=== PATIENT | male | born 1975 | race Caucasian/White ===

== ENCOUNTER 2017-01-31 17:50 | Emergency (ER) | payer SELFPAY ==
--- NOTE | 2017-01-31 19:49 | UC ---
Throat Pain/Nasal [place] HPI - HPI Summary HPI Summary: complaint of sore throat that started approx 3 hours ago sides of his tongue are sore feels fatigued denies fever and cough daughter dx with strep pharyngitis not taking any medication for symptoms - History of Current Complaint Chief Complaint: UCRespiratory Stated Complaint: POSSIBLE STREP COMPLAINT Time Seen by Provider: 01/31/17 19:42 Hx Obtained From: Patient - Allergies/Home Medications Allergies/Adverse Reactions: Allergies Allergy/AdvReac Type Severity Reaction Status Date / Time No Known Allergies Allergy Verified 01/31/17 19:31 Home Medications: Home Medications NK [No Home Medications Reported] 01/31/17 [History Confirmed 01/31/17] PMH/Surg Hx/FS Hx/Imm Hx Previously Healthy: Yes - Surgical History Surgical History: None - Family History Known Family History: Negative: Cardiac Disease, Hypertension, Diabetes - Social History Occupation: Employed Full-time Lives: With Family Alcohol Use: None Substance Use Type: None Smoking Status (MU): Never Smoked Tobacco Review of Systems Constitutional: Negative Skin: Negative Eyes: Negative ENT: Sore Throat Respiratory: Negative Cardiovascular: Negative Gastrointestinal: Negative Genitourinary: Negative Motor: Negative Neurovascular: Negative Musculoskeletal: Negative Neurological: Negative Psychological: Negative All Other Systems Reviewed And Are Negative: Yes Physical Exam Triage Information Reviewed: Yes Appearance: No Pain Distress, Well-Nourished Vital Signs: Initial Vital Signs Temp 98.5 F 01/31/17 19:28 Pulse 78 01/31/17 19:28 Resp 12 01/31/17 19:28 BP 121/80 01/31/17 19:28 Pulse Ox 100 01/31/17 19:28 Vital Signs Reviewed: Yes Eyes: Positive: Conjunctiva Clear ENT: Positive: Pharyngeal erythema, Nasal congestion, Nasal drainage, TMs normal , Tonsillar swelling. Negative: Tonsillar exudate Neck: Positive: No Lymphadenopathy Respiratory: Positive: Lungs clear, Normal breath sounds, No respiratory distress, No accessory muscle use Cardiovascular: Positive: RRR, No Murmur, Pulses Normal Abdomen Description: Positive: Nontender, Soft Bowel Sounds: Positive: Present Musculoskeletal: Positive: No Edema Neurological: Positive: Alert Psychological: Positive: Normal Response To Family, Age Appropriate Behavior Skin Exam: Normal Throat Pain/Nasal Course/Dx - Differential Dx/Diagnosis Differential Diagnosis/HQI/PQRI: Pharyngitis, Tonsillitis Provider Diagnoses: pharyngitis Discharge - Discharge Plan Condition: Stable Disposition: HOME Patient Education Materials: Pharyngitis (ED) Referrals: [facility] [place] [facility] [Outside] Additional Instructions: Increase fluids and rest Take acetaminophen or ibuprofen for fever or pain Please review your discharge instructions. If your symptoms do not improve please call your primary care provider or return to urgent care
== END 2017-01-31 20:15 | disposition home or self-care (01) ==
LOC: UCEAST 17:50
DX: J02.9 Acute pharyngitis, unspecified (principal)
CPT/HCPCS: 87651; 99201; G0463

== ENCOUNTER 2019-04-07 09:42 | Emergency (ER) | payer BC ==
[2019-04-07 10:13] VITALS: BP 111/71
--- NOTE | 2019-04-07 11:14 | UC ---
Skin Complaint HPI - HPI Summary HPI Summary: pt removed tick form inner L thigh yesterday. feels it was not there for >24h but concerned as he gets "a lot of tick bites" and in fact was treated 10 y ago for bulls eye rash. states this tick bite hurts and looks more red than others he removes - History of Current Complaint Chief Complaint: UCSkin Time Seen by Provider: 04/07/19 11:07 Stated Complaint: TICK BITE Hx Obtained From: Patient Onset/Duration: Sudden Onset Current Severity: None Pain Intensity: 0 Location: Other - L thigh Character: Pain, Redness Aggravating Factor(s): Touch Alleviating Factor(s): Nothing Associated Signs & Symptoms: Positive: Negative Related History: Insect Bite/Sting - Allergy/Home Medications Allergies/Adverse Reactions: Allergies Allergy/AdvReac Type Severity Reaction Status Date / Time No Known Allergies Allergy Verified 04/07/19 10:13 PMH/Surg Hx/FS Hx/Imm Hx Previously Healthy: Yes - Surgical History Surgical History: None - Family History Known Family History: Negative: Cardiac Disease, Hypertension, Diabetes - Social History Occupation: Employed Full-time Lives: With Family Alcohol Use: None Substance Use Type: Marijuana Substance Use Comment - Amount & Last Used: daily Smoking Status (MU): Never Smoked Tobacco Review of Systems All Other Systems Reviewed And Are Negative: Yes Constitutional: Positive: Negative. Negative: Fever Respiratory: Positive: Negative Cardiovascular: Positive: Negative Musculoskeletal: Negative: Arthralgia Neurological: Positive: Negative Psychological: Positive: Negative Is Patient Immunocompromised?: No Physical Exam Triage Information Reviewed: Yes Appearance: Well-Appearing, No Pain Distress, Well-Nourished Vital Signs: Initial Vital Signs Temp 98.1 F 04/07/19 10:03 Pulse 61 04/07/19 10:03 Resp 18 04/07/19 10:03 BP 111/71 04/07/19 10:03 Pulse Ox 100 04/07/19 10:03 Vital Signs Reviewed: Yes Respiratory Exam: Normal Cardiovascular Exam: Normal Skin: Positive: Other - 3mm circular red flat lesion inner L thigh, states site tick bite. no erythema migrans noted Course/Dx - Differential Diagnoses - Skin Complaint Differential Diagnoses: Cellulitis, Tick Born Illness - Diagnoses Provider Diagnosis: Tick bite Discharge - Sign-Out/Discharge Documenting (check all that apply): Patient Departure All imaging exams completed and their final reports reviewed: No Studies - Discharge Plan Condition: Good Disposition: HOME Prescriptions: Doxycycline Monohydrate [Mondoxyne Nl] 100 mg PO ONCE #2 capsule Patient Education Materials: Tick Bite (ED) Referrals: No Primary Care Phys,NOPCP [Primary Care Provider] - Additional Instructions: keep wound clean and dry take doxycycline antibiotic today observe for and report any sign Lyme disease return here for problems - Billing Disposition and Condition Condition: GOOD Disposition: Home - Attestation Statements Provider Attestation: I was available for consult. This patient was seen by the TRACEY. The patient was not presented to, seen by, or examined by me. -Isaura
== END 2019-04-07 11:29 | disposition home or self-care (01) ==
LOC: UCEAST 09:42
DX: S70.362A Insect bite (nonvenomous), left thigh, initial encounter (principal); W57.XXXA Bitten or stung by nonvenomous insect and other nonvenomous arthropods, initial encounter; Y92.9 Unspecified place or not applicable
CPT/HCPCS: 99212; G0463

== ENCOUNTER 2019-12-22 18:02 | Emergency (ER) | payer BC ==
[2019-12-22] MEDS ORDERED: Ondansetron ODT TAB* 4 MG PO ONE (18:19)
[2019-12-22] MEDS ORDERED: oxyCODONE TAB* 5 MG TAB PO ONE (18:19)
--- NOTE | 2019-12-22 18:19 | ED ---
Lower Extremity - HPI Summary HPI Summary: Patient complains of pain to right ankle after twisting leg today. Denies any other pain, injury or symptoms. - History of Current Complaint Stated Complaint: LEG PAIN PER EMS Time Seen by Provider: 12/22/19 18:18 Hx Obtained From: Patient Mechanism Of Injury: Twisted Onset of Pain: Immediate Onset/Duration: Minutes Severity Initially: Severe Severity Currently: Severe Pain Scale Used: 0-10 Numeric Timing: Constant Location: Is Discrete @ Character Of Pain: Sharp, Aching, Throbbing Associated Signs And Symptoms: Positive: Swelling Aggravating Factor(s): Standing, Ambulation Able to Bear Weight: No - Allergies/Home Medications Allergies/Adverse Reactions: Allergies Allergy/AdvReac Type Severity Reaction Status Date / Time No Known Allergies Allergy Verified 12/23/19 13:16 PMH/Surg Hx/FS Hx/Imm Hx Endocrine/Hematology History: Denies: Hx Anticoagulant Therapy Cardiovascular History: Denies: Hx Pacemaker/ICD History: Denies: Hx Dialysis Sensory History: Denies: Hx Eye Prosthesis Opthamlomology History: Denies: Hx Legally Blind EENT History: Denies: Hx Deafness Neurological History: Denies: Hx Dementia - Family History Known Family History: Negative: Cardiac Disease, Hypertension, Diabetes - Social History Alcohol Use: None Substance Use Type: Reports: Marijuana Substance Use Comment - Amount & Last Used: daily Smoking Status (MU): Never Smoked Tobacco Review of Systems Constitutional: Negative Eyes: Negative ENT: Negative Cardiovascular: Negative Respiratory: Negative Gastrointestinal: Negative Genitourinary: Negative Musculoskeletal: Other Skin: Negative Neurological/Mental Status: Negative Psychological: Normal All Other Systems Reviewed And Are Negative: Yes Physical Exam - Summary Physical Exam Summary: Mild swelling to right ankle and right foot. Mild ecchymosis. No obvious deformity, erythema. PMS intact distally. Triage Information Reviewed: Yes Vital Signs Reviewed: Yes Appearance: Positive: Well-Appearing Skin: Positive: Warm Head/Face: Positive: Normal Head/Face Inspection Eyes: Positive: Normal Neck: Positive: Supple Respiratory/Lung Sounds: Positive: Clear to Auscultation Cardiovascular: Positive: Normal Abdomen Description: Positive: Nontender Musculoskeletal: Positive: Normal Neurological: Positive: Normal Psychiatric: Positive: Normal AVPU Assessment: Alert - [place] Coma Scale Best Eye Response: 4 - Spontaneous Best Motor Response: 6 - Obeys Commands Best Verbal Response: 5 - Oriented Coma Scale Total: 15 Procedures - Sedation Patient Received Moderate/Deep Sedation with Procedure: No - Splinting 1 Location: right lower extremity Hand-Made Type: orthoglass Splint: Sugar tong with posterior walking Pre-Proc Neuro Vasc Exam: normal Post-Proc Neuro Vasc Exam: normal Lower Extremity Course/Dx - Course Course Of Treatment: Patient complains of pain to right ankle after twisting leg today. Denies any other pain, injury or symptoms. Vital signs within normal limits. X-ray positive for distal tibia fracture. Discussed patient with Dr. Rodney orthopedics who recommended splint and follow-up in outpatient clinic tomorrow at 8 AM. - Diagnoses Provider Diagnoses: Fracture of tibia, right, closed Discharge ED - Sign-Out/Discharge Documenting (check all that apply): Patient Departure - Discharge Plan Condition: Stable Disposition: HOME Prescriptions: Oxycodone HCl 5 mg PO Q6H 3 Days #12 tablet MDD 4 tabs Patient Education Materials: Leg Fracture (ED) Referrals: No Primary Care Phys,NOPCP [Primary Care Provider] - Robby King MD [Medical Doctor] - Additional Instructions: Show up at orthopedics clinic at [address] to [address] Dr[address] Rodney for further evaluation. Surgery likely scheduled for Sunday. Take oxycodone for pain as directed. Alternate ibuprofen 600 mg with Tylenol 650 mg every 3 hours for pain and inflammation as well. No weightbearing until evaluated by ortho. - Billing Disposition and Condition Condition: STABLE Disposition: Home
[2019-12-22] MEDS ORDERED: Morphine 4 MG/ML VIAL (1 ml) 4 MG/ML VIAL IV ONE ×2 (18:29→19:08)
[2019-12-22] MEDS ORDERED: Ondansetron INJ* 2 MG/ML VIAL IV ONE (18:29)
[2019-12-22] MEDS ORDERED: HYDROmorphone INJ* 0.5 MG/0.5 ML SYRINGE IV ONE (20:41)
[2019-12-22 23:39] VITALS: BP 133/76
== END 2019-12-22 23:15 | disposition home or self-care (01) ==
LOC: ED 18:02
DX: S82.301A Unspecified fracture of lower end of right tibia, initial encounter for closed fracture (principal); S82.831A Other fracture of upper and lower end of right fibula, initial encounter for closed fracture; X50.1XXA Overexertion from prolonged static or awkward postures, initial encounter; Y92.9 Unspecified place or not applicable
CPT/HCPCS: 96374; 96375; 99283; A9270-GY; J1170; J2270; J2405

== ENCOUNTER 2019-12-24 11:40 | Day surgery (SDC) | payer BC ==
[~2019-12-24 11:40] MED LIST: Acetaminophen TAB* 325 MG PO ONE; Buffered Lidocaine 1% SYRIN* 1 ML/SYRINGE INTRADERM ONE; Lactated Ringers 1000 ML Bag* 1,000 ML IV SCH
[2019-12-24] MEDS ORDERED: ceFAZolin 2 GM in NS PREMIX(*) 2 GM/100 ML BAG IVPB ONE (12:07)
[2019-12-24] MEDS ORDERED: Acetaminophen TAB* 325 MG ONE (12:07)
[2019-12-24] MEDS ORDERED: Scopolamine 1.5 mg* PATCH TRANSDERM ONE (13:41)
[2019-12-24] MEDS ORDERED: Midazolam* 1 MG/ML 2 ML VIAL (2 MG) ONE (13:48)
[2019-12-24] MEDS ORDERED: Rocuronium* 10 MG/ML VIAL ONE (13:48)
[2019-12-24] MEDS ORDERED: fentaNYL* 50 MCG/ML 5 ML VIAL (250 MCG VIAL) ONE (13:48)
[2019-12-24] MEDS ORDERED: Lidocaine 2% PF * 5 ML VIAL ONE (13:48)
[2019-12-24] MEDS ORDERED: Propofol* 10 MG/ML 20 ML BTL ONE ×2 (13:48→14:07)
[2019-12-24] MEDS ORDERED: Bupivacaine 0.5% W/EPI SDV* 10 ML VIAL INJ ONE (13:50)
[2019-12-24] MEDS ORDERED: Dexamethasone IV* 4 MG/ML 1 ML (4 MG) ONE (14:30)
[2019-12-24] MEDS ORDERED: HYDROmorphone INJ1* 1 MG/ML SYRINGE ONE (14:33)
[2019-12-24] MEDS ORDERED: Scopolamine 1.5 mg* PATCH ONE (14:36)
[2019-12-24] MEDS ORDERED: PROCHLORPERAZINE INJ 5 MG/ML 2 ML VIAL IV PRN (14:39)
[2019-12-24] MEDS ORDERED: Naloxone* 0.4 MG/ML 1 ML VIAL IV PRN (14:39)
[2019-12-24] MEDS ORDERED: diPHENhydraMINE IV* 50 MG/ML 1 ml VIAL (BENADRYL) IV PRN (14:39)
[2019-12-24] MEDS ORDERED: oxyCODONE TAB* 5 MG TAB PO PRN (14:39)
[2019-12-24] MEDS ORDERED: HYDROmorphone INJ1* 1 MG/ML SYRINGE IV PRN (14:39)
[2019-12-24] MEDS ORDERED: fentaNYL* 50 MCG/ML 2 ML VIAL (100 MCG VIAL) ONE (16:35)
[2019-12-24] MEDS ORDERED: Ondansetron INJ* 2 MG/ML VIAL ONE (16:57)
[2019-12-24] MEDS ORDERED: Ketorolac INJ* 30 MG/ML 1 ML VIAL ONE (16:57)
[2019-12-24 21:44] VITALS: BP 137/85
--- NOTE | 2019-12-25 02:20 | OP ---
DATE OF OPERATION: 12/24/19 [facility] DATE OF : 73 SURGEON: Robby King MD TIRE TESTER: CLAUDIA Coe ANESTHESIOLOGIST: Dr. Mandy Nieto. ANESTHESIA: General anesthesia, local anesthesia consisting of approximately 17 cc of Marcaine with epinephrine. PRE-OP DIAGNOSES: 1. Displaced right distal tibia shaft fracture. 2. Displaced right proximal fibular shaft fracture. POST-OP DIAGNOSES: 1. Displaced right distal tibia shaft fracture. 2. Displaced right proximal fibular shaft fracture. OPERATIVE PROCEDURE: Open reduction internal fixation, right tibia shaft fracture with intramedullary nail. 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 The patient was injured on 12/22/19 and was seen by me in clinic on 12/23/19 and was scheduled for surgery on 12/24/19. The patient had been very anxious about the surgery preoperatively. 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 Because of the displaced nature of the patient's tibial shaft fracture including significant rotation along with translation and angulation, I recommended surgery. Emergency department had tried a closed reduction, which only slightly improved the reduction. I discussed in some length risks, potential complications of surgery. These include bleeding, infection, nerve or blood vessel injury, non-union, malunion, anterior knee pain, rotational deformity of lower extremity. In particular, we discussed possibility of infection given as same as an athlete who had one of these fractures get infected and this had been covered in the popular press nationwide. We also discussed subtle rotational lower limb deformity that can be appreciated after this procedure. ANTIBIOTICS: Ancef 2 g IV. IV FLUIDS: See Anesthesia note. TOURNIQUET TIME: 40 minutes or less, right thigh tourniquet, set at 300 mmHg. BAMS-MW-DUCJ TIME: 158 minutes. RADIATION EXPOSURE: Large C-arm utilized. SPECIMEN: None. IMPLANTS: [employer] tibial nail, 8 mm x 330 mm. I placed 2 locking screws from medial to lateral, proximal and from medial to lateral, distal. COMPLICATIONS: None. ESTIMATED BLOOD LOSS: Minimal. DESCRIPTION OF PROCEDURE: In preoperative holding, the patient signed a written consent. Operative extremity was marked in preoperative holding. There was some delay because initially we had planned for a [employer] nail and we had instead a [employer] nail. I made sure that this was okay with the patient and his and eventually they decided that it would be okay. We went forward with the procedure. The patient was brought back to the operating room and placed supine on the operating room table. Sedated and intubated. A radiolucent table was utilized. A blanket bump under right hemipelvis was utilized. Right lower extremity was prepped and draped. Surgical time-out was performed. Esmarch was applied and tourniquet was elevated. Radiolucent triangle was utilized. Incised midline anterior longitudinal over the patellar tendon. I dissected down to the paratenon. I incised the paratenon in its midline. Incised the patellar tendon in its midline. Palpated the tibial plateau anterior corner. Placed with my hand a pin. Obtained AP and lateral x-ray views. Adjusted the pins several times to get it quite perfect. Advanced the pin. Essentially perfect location on AP and lateral x-ray views. Introduced entry reamer, tissue protector. I reamed my entry hole to the proximal tibia. Placed guidewire. Reduced the fracture. Advanced the guidewire to the distal physeal scar. I liked my reduction. I wanted to avoid opening skin and using a clamp to decrease the likelihood of infection. With manipulation, I could get it to nearly anatomic. We started out with the smallest reamer that could be utilized with the pin size. This was an 8-mm reamer. I was little surprised to note that the 8-mm reamer was not much smaller than the diameter of intramedullary canal. The 8- mm reamer was not passing well on the 3-mm ball tip guidewire, so we actually had to remove the 3-mm guidewire and instead pass a 2.5-mm guidewire. We next reamed with an 8 mm then an 8.5 mm and we reamed up to 9.5 mm. We reamed more carefully than usual because the 9.5 mm was really at the limit as to what the canal would handle I believed. This was important because the smallest nail size available from [employer] is an 8-mm nail. We placed our [employer] nail. Of course, I had earlier measured the appropriate length of the nail and picked 330 mm. Nail was passed. Bone was reduced. I liked my reduction. It was not yet anatomic, but it was close. Using the guide jig proximally, I placed 2 screws from medial to lateral through the nail. With the right lower extremity being placed under traction, watching the rotation of the lower leg, I, using perfect [place] technique, placed 2 screws through the nail distally from medial to lateral. X-rays obtained after distal screws placed showed excellent reduction, nearly anatomic. Essentially no angular deformity to several millimeters of translational deformity, very minimal. The rotation by C-arm looked anatomic. No rotational deformity noticeable on radiographs. I should say that I paid much more attention than it is typically required to the rotation of the right lower extremity during this case. This is because the patient and his in particular had noted the importance of this. I actually first examined the contralateral left lower extremity prior to prepping and draping to see what the anatomic position of the foot and ankle was with the knee flexed 90 degrees. The thigh-foot axis measured with the patient supine seemed to me to be proximally 5 to 10 degrees. I tried to duplicate this in the contralateral right lower extremity. I assessed the thigh-foot axis through -out the case being careful not to overly internally or externally rotate the lower leg. I was happy with the outcome on physical exam from a rotational perspective, but much thought was given to that. I irrigated all incisions including especially the one that split the patellar tendon. An end cap has also been placed, 5-mm long, proximally in the nail. The patellar tendon was closed with buried [id number] stitches using Ethibond 0 and Vicryl 0 suture. Paratenon was closed with running stitch using Vicryl 2-0 suture. All wounds and the subcutaneous tissue closed with buried simple stitches using Vicryl 2-0 suture. Skin was closed with noemi. Local anesthetic, 17 cc of Marcaine with epinephrine, was placed at all skin incisions. Xeroform, 4x4s, ABD over the knee incision, sterile Webril, non- sterile Webril. A lower leg short-leg splint was placed with the posterior slab and a sugar tong. That was overwrapped with an Edward bandage and dressing proximally overwrapped with an Edward bandage. The patient was awakened, extubated, and transferred to PACU. In the PACU, x-rays showed excellent reduction of both the tibia and fibula shaft fractures. The patient was given Percocet as needed for pain control, Lovenox for 2 weeks for DVT prophylaxis, 7-day course of Keflex as infection prophylaxis. The patient is to be using crutches and being non-weightbearing or toe touch weightbearing right lower extremity. The patient will see me in 10 to 14 days postoperatively for wound check and transition into a walking boot. I will decide on how much I advance his weightbearing at that time. [id number] #: [id number]
[2019-12-27] MEDS ORDERED: Scopolamine PATCH Remove* 1 NOTE MISC PATCH OFF ONE (13:43)
== END 2019-12-24 21:46 | disposition home or self-care (01) ==
LOC: OR 11:40
PROVIDERS: ATTEND Orthopaedic Surgery
DX: S82.251A Displaced comminuted fracture of shaft of right tibia, initial encounter for closed fracture (principal); S82.451A Displaced comminuted fracture of shaft of right fibula, initial encounter for closed fracture; E78.5 Hyperlipidemia, unspecified; X50.1XXA Overexertion from prolonged static or awkward postures, initial encounter; Y93.29 Activity, other involving ice and snow; Y92.096 Garden or yard of other non-institutional residence as the place of occurrence of the external cause
CPT/HCPCS: 76000; A9270-GY; C1713; C1776; J0690; J1100; J1170; J1885; J2250; J2405; J2704; J3010